=== PATIENT | male | born 1970 | race American Indian/Alaskan Native ===

== ENCOUNTER 2020-07-02 09:11 | Emergency (ER) | payer SELFPAY ==
[2020-07-02 09:22] VITALS: BP 154/98
--- NOTE | 2020-07-02 10:54 | Emergency Department Report ---
- General Chief complaint: Skin/Abscess/Foreign Body Stated complaint: ABSCESS IN THE SCROTUM AREA Time Seen by Provider: 07/02/20 09:31 Source: patient Mode of arrival: Ambulatory Limitations: No Limitations - History of Present Illness Initial comments: 49-year-old male with no significant past history presents to the ER today complaint of an abscess to his perineal area. Patient states that started about 3 days ago. States that started as a small bump but has gotten bigger since. He reports history of an abscess in the same area a few years ago during which time he was admitted because he developed a fever and had to be surgically drained. He states that he has not had any issue with it up until 3 days ago. He denies any fever in the past 3 days. He denies any drainage. He denies any apparent skin discoloration or any other symptoms at this time. MD complaint: abscess/boil -: Gradual (3 days ago ) Location: genitals Severity: moderate - Related Data Previous Rx's Medication Instructions Recorded Last Taken Type HYDROcodone/APAP 5-325 [Emma 1 each PO Q4HR PRN #12 tablet 07/02/20 Unknown Rx 5/325] Ibuprofen [Motrin] 800 mg PO Q8HR PRN #30 tablet 07/02/20 Unknown Rx Sulfamethoxazole/Trimethoprim 1 each PO BID #14 tablet 07/02/20 Unknown Rx [Bactrim DS TAB] cephALEXin [Keflex] 500 mg PO Q6HR #40 capsule 07/02/20 Unknown Rx Allergies Allergy/AdvReac Type Severity Reaction Status Date / Time No Known Allergies Allergy Verified 07/02/20 09:22 Abscess Boil HPI - HPI Chief Complaint: Skin/Abscess/Foreign Body Stated Complaint: ABSCESS IN THE SCROTUM AREA Time Seen by Provider: 07/02/20 09:31 Home Medications: Previous Rx's Medication Instructions Recorded Last Taken Type HYDROcodone/APAP 5-325 [Emma 1 each PO Q4HR PRN #12 tablet 07/02/20 Unknown Rx 5/325] Ibuprofen [Motrin] 800 mg PO Q8HR PRN #30 tablet 07/02/20 Unknown Rx Sulfamethoxazole/Trimethoprim 1 each PO BID #14 tablet 07/02/20 Unknown Rx [Bactrim DS TAB] cephALEXin [Keflex] 500 mg PO Q6HR #40 capsule 07/02/20 Unknown Rx Allergies/Adverse Reactions: Allergies Allergy/AdvReac Type Severity Reaction Status Date / Time No Known Allergies Allergy Verified 07/02/20 09:22 ED Review of Systems ROS: Stated complaint: ABSCESS IN THE SCROTUM AREA Other details as noted in HPI Comment: All other systems reviewed and negative Constitutional: denies: chills, fever, malaise, weakness Eyes: denies: eye pain, eye discharge, vision change ENT: denies: ear pain, throat pain, dental pain, hearing loss, epistaxis, congestion Respiratory: denies: cough, orthopnea, shortness of breath, SOB with exertion, SOB at rest, wheezing Gastrointestinal: denies: abdominal pain, nausea, diarrhea, constipation, hematemesis, hematochezia Genitourinary: denies: urgency, dysuria, frequency, hematuria, discharge, testicular pain, testicular mass Musculoskeletal: denies: back pain, joint swelling, arthralgia Skin: other (Abscess perineal area) Neurological: denies: headache, weakness, numbness, paresthesias, confusion, abnormal gait, vertigo Psychiatric: denies: anxiety, depression, auditory hallucinations, visual hallucinations, homicidal thoughts, suicidal thoughts ED Past Medical Hx - Social History Smoking Status: Current Every Day Smoker Substance Use Type: None - Medications Home Medications: Home Medications Medication Instructions Recorded Confirmed Last Taken Type HYDROcodone/APAP 5-325 [Emma 1 each PO Q4HR PRN #12 tablet 07/02/20 Unknown Rx 5/325] Ibuprofen [Motrin] 800 mg PO Q8HR PRN #30 tablet 07/02/20 Unknown Rx Sulfamethoxazole/Trimethoprim 1 each PO BID #14 tablet 07/02/20 Unknown Rx [Bactrim DS TAB] cephALEXin [Keflex] 500 mg PO Q6HR #40 capsule 07/02/20 Unknown Rx ED Physical Exam - General Limitations: No Limitations General appearance: alert, in no apparent distress - Head Head exam: Present: atraumatic, normocephalic, normal inspection - Eye Eye exam: Present: normal appearance, PERRL, EOMI Pupils: Present: normal accommodation - Respiratory Respiratory exam: Absent: respiratory distress - Cardiovascular Cardiovascular Exam: Present: regular rate - exam: Present: other (Patient has a tender indurated area to his perineum, no fluctuance, no drainage and no associated cellulitis or evidence of Veronica's gangrene; there is some scarring noted from his previous I&D). Absent: testicular tenderness, urethral discharge, scrotal swelling ED Course Vital Signs 07/02/20 09:20 Temperature 98.5 F Pulse Rate 109 H Respiratory 18 Rate Blood Pressure 154/98 O2 Sat by Pulse 98 Oximetry ED Medical Decision Making - Medical Decision Making Patient has an indurated area to his perineal area. There is no fluctuance associated cellulitis. No perirectal, rectal, scrotal or penile/ testicular involvement. Patient is afebrile, he does not appear toxic or septic and he is well-appearing. Case was discussed with Dr. Yefri Best who also examined the area. At this time there is no indication for I&D. Recommend oral antibiotics and warm compresses at this time. But patient was warned that there is a chance that the area could get worse despite taking oral antibiotics which for which she will need to come back. Patient expressed understanding of instructions and agree with plan. Patient stable at time of discharge. Critical care attestation.: If time is entered above; I have spent that time in minutes in the direct care of this critically ill patient, excluding procedure time. ED Disposition Clinical Impression: Abscess, perineum Disposition: DC-01 TO HOME OR SELFCARE Is pt being admited?: No Does the pt Need Aspirin: No Condition: Stable Instructions: Skin Abscess, [id number] Additional Instructions: Recommend starting taking antibiotics today and take it to completion. Take the pain medications as prescribed. Recommend warm compresses 2-3 times per day. return to the ER if the area seems to be getting worse despite taking antibiotics or if you start developing fever of 100.5 or higher. Prescriptions: Sulfamethoxazole/Trimethoprim [Bactrim DS TAB] 1 each PO BID #14 tablet cephALEXin [Keflex] 500 mg PO Q6HR #40 capsule Ibuprofen [Motrin] 800 mg PO Q8HR PRN #30 tablet PRN Reason: Pain HYDROcodone/APAP 5-325 [Emma 5/325] 1 each PO Q4HR PRN #12 tablet PRN Reason: Pain Referrals: [facility] [Other] - 3-5 Days Forms: Work/School Release Form(ED) Time of Disposition: 11:10
== END 2020-07-02 11:15 | disposition home or self-care (01) ==
LOC: ED 09:11
DX: L02.215 Cutaneous abscess of perineum (principal); F17.200 Nicotine dependence, unspecified, uncomplicated; Z79.899 Other long term (current) drug therapy
CPT/HCPCS: 99281